=== PATIENT | female | born 1995 | race Caucasian/White ===

== ENCOUNTER 2017-06-09 10:16 | Emergency (ER) | payer OTHER | END 2017-06-09 12:45 | disposition home or self-care (01) | LOC: FTE 10:16 | DX: Z76.0 Encounter for issue of repeat prescription (principal); J45.909 Unspecified asthma, uncomplicated | CPT/HCPCS: 99281; Z7502 ==

== ENCOUNTER 2017-07-01 23:13 | Inpatient (IN) | payer OTHER ==
[2017-07-02] MEDS: LACTATED RINGER'S 1,000 ML IV ×3 (02:40→12:03)
[2017-07-02] MEDS ORDERED: LACTATED RINGER'S 1,000 ML IV (02:53)
[2017-07-02] MEDS ORDERED: CARBOPROST 250 MCG INJ IM (03:00)
[2017-07-02] MEDS ORDERED: METHYLERGONOVINE 0.2 MG INJ IM (03:00)
[2017-07-02] MEDS ORDERED: MISOPROSTOL 200 MCG TAB PR (03:00)
[2017-07-02] MEDS ORDERED: OXYTOCIN 30 UNITS/LR 500 ML IV ×2 (03:00→18:51)
[2017-07-02] MEDS ORDERED: IBUPROFEN 600 MG TAB PO (03:00)
[2017-07-02] MEDS ORDERED: LIDOCAINE 1% (MPF) 30 ML INJ INJ (03:00)
[2017-07-02] MEDS ORDERED: BUTORPHANOL 2 MG INJ IV (03:00)
[2017-07-02 03:35] LABS: ADD MAN DIFF? NO
[2017-07-02 03:37] LABS: BASOPHILS % 0.1 % (0.0-2.0); EOSINOPHILS # 0.1 10^3/ul (0.0-0.5); EOSINOPHILS % 0.7 % (0.0-7.0); HEMATOCRIT 32.5 % (37.0-47.0); HEMOGLOBIN 11.6 g/dl (12.0-16.0); LYMPHOCYTES # 2.7 10^3/ul (0.8-2.9); LYMPHOCYTES % 24.2 % (15.0-51.0); MEAN CORPUSCULAR HEMOGLOBIN 28.7 pg (29.0-33.0); MEAN CORPUSCULAR HGB CONC 35.7 g/dl (32.0-37.0); MEAN CORPUSCULAR VOLUME 80.4 fl (82.0-101.0); MEAN PLATELET VOLUME 10.4 fl (7.4-10.4); MONOCYTE # 0.9 10^3/ul (0.3-0.9); NEUTROPHIL # 7.3 10^3/ul (1.6-7.5); NEUTROPHILS % 65.7 % (39.0-77.0); PLATELET COUNT 211 10^3/UL (140-415); RED BLOOD COUNT 4.04 10^6/ul (4.20-5.40); RED CELL DISTRIBUTION WIDTH 12.5 % (11.5-14.5)
[2017-07-02 03:58] LABS: INR 0.97
[2017-07-02 03:59] LABS: PARTIAL THROMBOPLASTIN TIME 29.2 Sec (25.0-35.0)
[2017-07-02 04:28] LABS: HEPATITIS B SURFACE ANTIGEN NEGATIVE (NEGATIVE)
[2017-07-02] MEDS: AMPICILLIN 2 GM/NS (PMX) 100 ML IVPB (05:14)
[2017-07-02 07:48] LABS: AMPHETAMINE/METHAMPHETAMINE Negative (NEGATIVE); BARBITURATES Negative (NEGATIVE); BENZODIAZEPINES Negative (NEGATIVE); CANNABINOIDS Negative (NEGATIVE); COCAINE Negative (NEGATIVE); OPIATES Negative (NEGATIVE)
[2017-07-02] MEDS: AMPICILLIN 1 GM/NS (PMX) 50 ML IVPB ×2 (09:09→12:55)
[2017-07-02] MEDS ORDERED: FENTAnyl 2MCG/ML-ROPIV 0.2% 100 ML (12:47)
[2017-07-02] MEDS ORDERED: ONDANSETRON 4 MG INJ (12:53)
[2017-07-02] MEDS: ONDANSETRON 4 MG INJ IV (13:05)
[2017-07-02] MEDS: MINERAL OIL LIGHT 10 ML VIAL TOP (15:30)
[2017-07-02 15:44] LABS: RAPID PLASMA REAGIN NONREACTIVE (NR)
[2017-07-02] MEDS: OXYTOCIN 30 UNITS/LR 500 ML IV ×2 (16:25→16:56)
[2017-07-02] MEDS ORDERED: HYDROCODONE/APAP (5/325) TAB PO ×2 (19:00)
[2017-07-02] MEDS ORDERED: OXYCODONE/ASPIRIN (4.88/325) TAB PO ×2 (19:00)
[2017-07-02] MEDS ORDERED: ACETAMINOPHEN 325 MG TAB PO (19:00)
[2017-07-02] MEDS ORDERED: ONDANSETRON 4 MG INJ IV (19:00)
[2017-07-02] MEDS ORDERED: DIBUCAINE 1% 30 GM OINT PR (19:00)
[2017-07-02] MEDS: SENNA/DOCUSATE NA (8.6MG/50MG) TAB PO (20:40)
[2017-07-02] MEDS: IBUPROFEN 600 MG TAB PO (23:57)
[2017-07-03] MEDS: BENZOCAINE 20% 56 ML SPRAY TOP (02:46)
[2017-07-03] MEDS: LANOLIN 7 GM TUBE TOP (02:46)
[2017-07-03] MEDS: WITCH HAZEL/GLYCERIN PAD PR (02:46)
[2017-07-03] MEDS: IBUPROFEN 600 MG TAB PO ×3 (06:00→18:01)
[2017-07-03] MEDS: SENNA/DOCUSATE NA (8.6MG/50MG) TAB PO ×2 (08:18→21:59)
[2017-07-03 10:04] LABS: ADD MAN DIFF? NO
[2017-07-03 10:05] LABS: WHITE BLOOD COUNT 14.2 10^3/ul (4.8-10.8)
[2017-07-03 10:05] LABS: BASOPHILS % 0.1 % (0.0-2.0); EOSINOPHILS % 0.1 % (0.0-7.0); HEMOGLOBIN 11.7 g/dl (12.0-16.0); LYMPHOCYTES # 1.9 10^3/ul (0.8-2.9); LYMPHOCYTES % 13.1 % (15.0-51.0); MEAN CORPUSCULAR HEMOGLOBIN 28.5 pg (29.0-33.0); MEAN CORPUSCULAR HGB CONC 35.5 g/dl (32.0-37.0); MEAN CORPUSCULAR VOLUME 80.5 fl (82.0-101.0); MEAN PLATELET VOLUME 10.7 fl (7.4-10.4); MONOCYTES % 7.2 % (0.0-11.0); NEUTROPHIL # 11.2 10^3/ul (1.6-7.5); NEUTROPHILS % 78.9 % (39.0-77.0); PLATELET COUNT 203 10^3/UL (140-415); RED CELL DISTRIBUTION WIDTH 12.5 % (11.5-14.5)
[2017-07-04] MEDS: IBUPROFEN 600 MG TAB PO ×3 (00:33→12:18)
[2017-07-04] MEDS: MEASLES,MUMPS,RUBELLA VACCINE INJ SC* (09:00)
[2017-07-04] MEDS: SENNA/DOCUSATE NA (8.6MG/50MG) TAB PO (10:00)
== END 2017-07-04 17:30 | disposition home or self-care (01) | DRG 775 ==
LOC: OBT 23:13 → L-D 23:14 → OBT 07-02 02:22 → L-D 07-02 02:24 → PP1 07-02 18:39
PROC: 10E0XZZ Delivery of Products of Conception, External Approach (ICD-10-PCS; principal; 2017-07-02)
PROC: 0HQ9XZZ Repair Perineum Skin, External Approach (ICD-10-PCS; 2017-07-02)
DX: O70.0 First degree perineal laceration during delivery (principal); Z37.0 Single live birth; Z3A.38 38 weeks gestation of pregnancy
CPT/HCPCS: 62319; 80307; 85025; 85610; 85730; 86592; 86900; 86901; 87340